=== PATIENT | female | born 1970 | race Native Hawaiian/Other Pacific Islander ===

== ENCOUNTER 2016-05-07 08:26 | Outpatient (CLI) | payer BC | END 2016-05-07 19:20 | disposition home or self-care (01) | LOC: MAMMO 08:26 | DX: Z12.31 Encounter for screening mammogram for malignant neoplasm of breast (principal) | CPT/HCPCS: G0202-TC ==

== ENCOUNTER 2017-11-19 10:09 | Outpatient (CLI) | payer BC | END 2017-11-19 21:32 | disposition home or self-care (01) | LOC: MAMMO 10:09 | DX: Z12.31 Encounter for screening mammogram for malignant neoplasm of breast (principal) ==

== ENCOUNTER 2018-08-12 07:24 | Outpatient (CLI) | payer OTHER ==
[2018-08-12 07:41] LABS: PLATELET COUNT 240 K/uL (152-353)
[2018-08-12 08:39] LABS: POTASSIUM 4.4 mmol/L (3.6-5.2)
== END 2018-08-12 23:26 | disposition home or self-care (01) ==
LOC: LABW 07:24
PROVIDERS: Family Medicine
DX: E78.00 Pure hypercholesterolemia, unspecified (principal)
CPT/HCPCS: 36415; 80053; 80061; 85027

== ENCOUNTER 2018-11-27 10:05 | Outpatient (CLI) | payer OTHER | END 2018-11-27 19:20 | disposition home or self-care (01) | LOC: MAMMO 10:05 | DX: Z12.31 Encounter for screening mammogram for malignant neoplasm of breast (principal) ==

== ENCOUNTER 2020-01-04 10:09 | Outpatient (CLI) | payer OTHER | END 2020-01-04 20:19 | disposition home or self-care (01) | LOC: MAMMO 10:09 | DX: Z12.31 Encounter for screening mammogram for malignant neoplasm of breast (principal) ==

== ENCOUNTER 2021-01-23 15:35 | Emergency (ER) | payer OTHER ==
[~2021-01-23] VITALS: Ht 165.1 cm; Wt 90.7 kg
[2021-01-23 15:49] VITALS: BP 161/97; TEMP 97
== END 2021-01-23 17:07 | disposition home or self-care (01) ==
LOC: ED 15:35
DX: S68.617A Complete traumatic transphalangeal amputation of left little finger, initial encounter (principal); W31.89XA Contact with other specified machinery, initial encounter; Y92.89 Other specified places as the place of occurrence of the external cause
CPT/HCPCS: 90471; 90715; 96372; 99283

== ENCOUNTER 2021-07-09 10:49 | Outpatient (CLI) | payer BC | END 2021-07-09 18:58 | disposition home or self-care (01) | LOC: MAMMO 10:49 | PROVIDERS: ATTEND Family Medicine | DX: Z12.31 Encounter for screening mammogram for malignant neoplasm of breast (principal) ==